=== PATIENT | female | born 1995 | race Caucasian/White ===

== ENCOUNTER 2019-11-27 10:20 | Emergency (ER) | payer BC, MEDICAID ==
[~2019-11-27] VITALS: Ht 170.2 cm; Wt 63.5 kg
--- NOTE | 2019-11-27 11:13 | NUR ---
assumed pt care.
--- NOTE | 2019-11-27 11:21 | NUR ---
urine collected and sent to lab.
--- NOTE | 2019-11-27 11:27 | NUR ---
SEEN AND EXAMINED BY .
--- NOTE | 2019-11-27 11:29 | NUR ---
pt signed waiver for xray
--- NOTE | 2019-11-27 11:35 | NUR ---
pt is wheeled to ct scan via [facility].
--- NOTE | 2019-11-27 12:31 | NUR ---
Patient discharged to home in stable condition. Written and verbal after care instructions given. Patient verbalizes understanding of instruction. Pt ambulatory with a steady gait
[2019-11-27 12:33] VITALS: BP 114/75
== END 2019-11-27 12:34 | disposition home or self-care (01) ==
LOC: ER 10:20
DX: S13.8XXA Sprain of joints and ligaments of other parts of neck, initial encounter (principal); S80.11XA Contusion of right lower leg, initial encounter; V49.49XA Driver injured in collision with other motor vehicles in traffic accident, initial encounter; Y93.89 Activity, other specified; Y92.488 Other paved roadways as the place of occurrence of the external cause; Y99.8 Other external cause status
CPT/HCPCS: 72050-TC; 73590-TC; 84703-TC